=== PATIENT | female | born 1975 | race Caucasian/White ===

== ENCOUNTER → 2017-01-15 | Outpatient (CLI) | payer OTHER ==
[2017-01-15 15:59] VITALS: BP 114/68; PULSE 69; RESP 15; TEMP 97.8; BMI 40.8
--- NOTE | 2017-01-15 16:19 | P.HPBAR ---
Bariatric H&P - History & Physicial H&P Date: 01/15/17 History & Physicial: Visit/CC: band fill Patient initial contact: Initial weight: 136.078 kg Initial weight in pounds: 300.00 Height: 5 ft 8 in Initial BMI: 45.6 Last weight: Current weight: 121.88 kg Current weight in pounds: 268.70 Current BMI: 40.8 [place] body weight (based on NIH guidelines): 63.503 kg Excess body weight loss: 19.5% The patient is a 41 year-old F who presents for Bariatric Assessment. The patient presents for lap band follow. She is moving of the area and was living in [facility]. The patient states that she had an adjustment done had a clinic. She states she has no restriction. I have not seen her in 3 or 4 years. Past Medical History Past Medical History: No Reported History History of Any Multi-Drug Resistant Organisms: None Reported Past Surgical History: Cholecystectomy Additional Past Surgical History / Comment(s): LAP BAND, PANNICULECTOMY Past Anesthesia/Blood Transfusion Reactions: No Reported Reaction, Motion Sickness Additional Past Anesthesia/Blood Transfusion Reaction / Comm: No transfusions to date, patient states she receives scolpalamine patch behind ear during sx. Past Psychological History: No Psychological Hx Reported Smoking Status: Never smoker Past Alcohol Use History: Occasional Past Drug Use History: None Reported - Past Family History Mother Family Medical History: Coronary Artery Disease (CAD) Additional Family Medical History / Comment(s): heart attack at age 60's (smoker ) Father Family Medical History: Hyperlipidemia Surgical - Exam Vital Signs Temp Pulse Resp BP 97.8 F 69 15 114/68 01/15/17 15:53 01/15/17 15:53 01/15/17 15:53 01/15/17 15:53 - General well developed, no distress - Eyes PERRL - ENT normal pinna - Neck no masses - Abdomen Abdomen: soft, non tender Bariatric Assessment & Plan Plan: Patient's lap band was adjusted. She had 2 mL added to her band. There was a slight decrease in the volume after flushing the band. There appeared to be 1.7 mL in the band. It is not clear if this was due to a leak. The patient follow-up in 2 weeks for recheck. If there is evidence of a leak she'll be scheduled for replacement of her LAP-BAND port. Bariatric Checklist Checklist: Plan: Checklist: EGD: 1. Hiatal hernia: 2. H. Pylori: HgbA1c: Vitamin D: Smoking: Never smoker Primary care physician referral: none Psychiatry clearance: Cardiology clearance: Sleep study: Diet journal: VTE risk score: VTE risk level: Rehab needs at discharge:
== END | disposition home or self-care (01) ==
LOC: BARWHC3 13:47
PROVIDERS: ATTEND Surgery
DX: Z09 Encounter for follow-up examination after completed treatment for conditions other than malignant neoplasm (principal); Z98.84 Bariatric surgery status
CPT/HCPCS: 99202

== ENCOUNTER 2017-03-23 08:49 | Day surgery (SDC) | payer OTHER ==
[2017-03-16 14:21] VITALS: BMI 40.7
[~2017-03-23 08:49] MED LIST: DEXAMETHASONE SOD PHOSPHATE 10 MG/ML 1 ML VIAL IV ONE; LACTATED RINGERS 1,000 ML IV SCH; MIDAZOLAM 2 MG/2 ML VIAL IV PRN; ONDANSETRON 4 MG/2 ML VIAL IVP ONE; SCOPOLAMINE 1.5MG/72HR PATCH TRANSDERM ONE; ceFAZolin 3 GM in SODIUM CHLORIDE 0.9% 100 ML IVPB ONE
--- NOTE | 2017-03-23 10:13 | P.GSHP ---
History of Present Illness H&P Date: 03/23/17 Chief Complaint: LAP-BAND port malfunction This a 42-year-old female who's had previous Leslee surgery. Patient presents today for laparoscopic removal and replacement of LAP-BAND port. Her port is not holding fluid. Past Medical History Past Medical History: GERD/Reflux Additional Past Medical History / Comment(s): SEASONAL ALLERGIES History of Any Multi-Drug Resistant Organisms: None Reported Past Surgical History: Bariatric Surgery, Cholecystectomy, Orthopedic Surgery Additional Past Surgical History / Comment(s): LAP BAND, PANNICULECTOMY, LEFT FOOT BONE SPURS REMOVED Past Anesthesia/Blood Transfusion Reactions: Motion Sickness, Postoperative Nausea & Vomiting (PONV) Additional Past Anesthesia/Blood Transfusion Reaction / Comment(s): No transfusions to date, patient states she receives scolpalamine patch behind ear during sx. Smoking Status: Never smoker - Past Family History Mother Family Medical History: CVA/TIA Additional Family Medical History / Comment(s): heart attack at age 60's (smoker ) Father Family Medical History: Hyperlipidemia Medications and Allergies Home Medications Medication Instructions Recorded Confirmed Type Levocetirizine Dihydrochloride 5 mg PO DAILY PRN 03/16/17 03/23/17 History [Xyzal] Omeprazole 40 mg PO BID PRN 03/16/17 03/23/17 History Allergies Allergy/AdvReac Type Severity Reaction Status Date / Time clarithromycin [From Biaxin] AdvReac Rapid Verified 03/23/17 09:27 Heart Rate hydrocodone bitartrate AdvReac Vomiting Verified 03/23/17 09:27 [From Vicodin] Surgical - Exam Vital Signs Temp Pulse Resp BP Pulse Ox 98 F 75 16 104/81 98 03/23/17 09:32 03/23/17 09:32 03/23/17 09:32 03/23/17 09:32 03/23/17 09:32 - General well developed - Eyes PERRL - ENT normal pinna - Neck no masses - Respiratory normal expansion - Cardiovascular Rhythm: regular - Abdomen Abdomen: soft, non tender Assessment and Plan Plan: LAP-BAND port malfunction. We'll perform laparoscopic removal and replacement of LAP-BAND port.
[2017-03-23] MEDS ORDERED: ROCURONIUM BROMIDE 10 MG/ML 10 ML VIAL IV ONE (10:14)
[2017-03-23] MEDS ORDERED: LACTATED RINGERS 1,000 ML IV ONE (10:14)
[2017-03-23] MEDS ORDERED: MIDAZOLAM 2 MG/2 ML VIAL ONE (10:14)
[2017-03-23] MEDS ORDERED: ONDANSETRON 4 MG/2 ML VIAL ONE (10:14)
[2017-03-23] MEDS ORDERED: GLYCOPYRROLATE 0.2 MG/ML 2 ML VIAL ONE (10:14)
[2017-03-23] MEDS ORDERED: LIDOCAINE 1% INJ 10MG/ML (20 ML MDV) ONE (10:14)
[2017-03-23] MEDS ORDERED: PROPOFOL 10 MG/ML 20 ML VIAL IV ONE (10:14)
[2017-03-23] MEDS ORDERED: SUCCINYLCHOLINE CHLORIDE 100 MG/5 ML SYR IV ONE (10:14)
[2017-03-23] MEDS ORDERED: NEOSTIGMINE 1 MG/ML 10 ML VIAL ONE (10:14)
[2017-03-23] MEDS ORDERED: fentaNYL (PF) 50 MCG/ML 2 ML AMP ONE (10:14)
[2017-03-23] MEDS ORDERED: LIDOCAINE 2%-EPI 1:100,000 20 ML VIAL SQ ONE ×2 (10:35)
[2017-03-23] MEDS ORDERED: BUPIVACAINE (PF) 0.25% 30 ML VIAL SQ ONE ×2 (10:35)
[2017-03-23 11:26] VITALS: TEMP 97.8
[2017-03-23] MEDS ORDERED: PROMETHAZINE INJ 25 MG/ML 1 ML VIAL IVPB ONE (11:30)
[2017-03-23] MEDS: HYDROmorphone 1 MG/ML 1 ML SYRINGE IVP PRN ×2 (11:45→12:12)
--- NOTE | 2017-03-23 13:10 | P.OP ---
Date of Procedure: 03/23/17 Preoperative Diagnosis: LAP-BAND port malfunction Postoperative Diagnosis: LAP-BAND port malfunction Procedure(s) Performed: Colonoscopy Implants: Anesthesia: MAC Surgeon: Darinel Luke Estimated Blood Loss (ml): 5 Pathology: none sent Condition: stable Disposition: PACU Indications for Procedure: Operative Findings: Description of Procedure: The patient's placed on the operative table in the supine position. She she received general anesthesia. Her abdomen was prepped and draped usual sterile fashion. The skin was anesthetized over the port site and then using a 11 blade the skin was incised and using left cautery the LAP-BAND port was dissected free from the subcutaneous tissues. The connecting tube appeared to be eroded from the fascia. At this point the tubing was cut and the port was removed. Using a 5 mm optical trocar under direct visitation the perineal cavity is entered and the abdomen was insufflated after adequate insufflation the laparoscope was placed back the pleural cavity. A 10 mm trocar was placed in the right upper quadrant. Under direct vision. And then the Tube was brought up through the similar trocar site. The LAP-BAND port was connected PEG tube and this was secured to the fascia using 0 Nurolon suture. The port was flushed with saline. 2 mL was left in the port. The skin was closed interrupted 3-0 Monocryl suture. Dermabond was applied. Patient top she will was sent to recovery in stable condition.
[2017-03-23] MEDS ORDERED: HYDROcodone/APAP 7.5-325MG 1 EACH TAB PO ONE (13:27)
[2017-03-23 13:36] VITALS: BP 114/74; PULSE 69; RESP 18
== END 2017-03-23 14:11 | disposition home or self-care (01) ==
LOC: OR 08:49
PROVIDERS: ATTEND Surgery
DX: T85.518A Breakdown (mechanical) of other gastrointestinal prosthetic devices, implants and grafts, initial encounter (principal); E66.01 Morbid (severe) obesity due to excess calories; K21.9 Gastro-esophageal reflux disease without esophagitis; Z79.899 Other long term (current) drug therapy; Z88.5 Allergy status to narcotic agent; Z88.1 Allergy status to other antibiotic agents; Z98.84 Bariatric surgery status
CPT/HCPCS: 81025; 43888; C1751; J2250; J1100; J2550; J2710; J0690; J2405; J2001; J3010; J1170; J0330; J2704

== ENCOUNTER → 2017-03-27 | Outpatient (CLI) | payer OTHER ==
--- NOTE | 2017-03-27 14:25 | P.BASOAP ---
Subjective Principal diagnosis: Dysphagia Patient underwent laparoscopic port replacement last week by Dr. Luke. She has had difficulty tolerating liquids and solids since that time. She has had episodes of vomiting. Denies fevers. Mild incisional discomfort. She was only able to tolerate small volumes fill previously. Objective - Exam Abdomen: Soft, nondistended, incisions clean and dry, mild tenderness Assessment/Plan (1) Morbid obesity Narrative/Plan: Patient's port was accessed. A small seroma measuring 3-4 mL was evacuated. The port itself was evacuated of 1.5 mL of saline. The patient was then able to tolerate liquids without difficulty. Plan: Date: Initial Weight: 136.078 kg Initial BMI: Current Weight: Current BMI: Type of Surgery: Total Volume in Band: 2 Previous Volume: Volume Removed: Volume Added: Band Size:
[2017-03-27 14:32] VITALS: BP 122/75; PULSE 88; TEMP 98.2; BMI 40.4
== END | disposition home or self-care (01) ==
LOC: BARWHC3 13:30
PROVIDERS: ATTEND Surgery
DX: E66.01 Morbid (severe) obesity due to excess calories (principal)
CPT/HCPCS: 99212

== ENCOUNTER → 2017-04-16 | Outpatient (CLI) | payer OTHER ==
[2017-04-16 14:17] VITALS: BP 113/72; PULSE 87; RESP 16; TEMP 98.4; BMI 41.5
--- NOTE | 2017-04-16 14:38 | P.HPBAR ---
Bariatric H&P - History & Physicial H&P Date: 04/16/17 History & Physicial: Visit/CC: Patient initial contact: Initial weight: 136.078 kg Initial weight in pounds: 300.00 Height: 5 ft 8 in Initial BMI: 45.6 Last weight: Current weight: 123.944 kg Current weight in pounds: 273.00 Current BMI: 41.5 [place] body weight (based on NIH guidelines): 63.503 kg Excess body weight loss: 16.8% The patient is a 42 year-old F who presents for Bariatric Assessment. Patient presents today for l LAP-BAND adjustment. She currently feels hungry. Past Medical History Past Medical History: GERD/Reflux Additional Past Medical History / Comment(s): SEASONAL ALLERGIES History of Any Multi-Drug Resistant Organisms: None Reported Past Surgical History: Bariatric Surgery, Cholecystectomy, Orthopedic Surgery Additional Past Surgical History / Comment(s): LAP BAND, PANNICULECTOMY, LEFT FOOT BONE SPURS REMOVEDlap band port replacement - Past Anesthesia/Blood Transfusion Reactions: Motion Sickness, Postoperative Nausea & Vomiting (PONV) Additional Past Anesthesia/Blood Transfusion Reaction / Comm: No transfusions to date, patient states she receives scolpalamine patch behind ear during sx. Smoking Status: Never smoker - Past Family History Mother Family Medical History: CVA/TIA Additional Family Medical History / Comment(s): heart attack at age 60's (smoker ) Father Family Medical History: Hyperlipidemia Surgical - Exam Vital Signs Temp Pulse Resp BP 98.4 F 87 16 113/72 04/16/17 14:11 04/16/17 14:11 04/16/17 14:11 04/16/17 14:11 - General well developed, no distress - Eyes PERRL - Abdomen Abdomen: soft, non tender Bariatric Assessment & Plan Plan: Patient LAP-BAND was adjusted. She had 1 mL added to her band. The patient was a refill of Prilosec for her mild GERD symptoms. Bariatric Checklist Checklist: Plan: Checklist: EGD: 1. Hiatal hernia: 2. H. Pylori: HgbA1c: Vitamin D: Smoking: Never smoker Primary care physician referral: none Psychiatry clearance: Cardiology clearance: Sleep study: Diet journal: VTE risk score: VTE risk level: Rehab needs at discharge:
== END ==
LOC: BARWHC3 13:31
PROVIDERS: ATTEND Surgery
DX: Z48.815 Encounter for surgical aftercare following surgery on the digestive system (principal); K21.9 Gastro-esophageal reflux disease without esophagitis; Z79.899 Other long term (current) drug therapy; Z98.84 Bariatric surgery status
CPT/HCPCS: 99212

== ENCOUNTER → 2017-11-02 | Outpatient (CLI) | payer OTHER ==
[2017-11-02 09:30] VITALS: BP 121/69; PULSE 72; TEMP 97.7; BMI 38.7
--- NOTE | 2017-11-02 09:59 | P.HPBAR ---
Bariatric H&P - History & Physicial H&P Date: 11/02/17 History & Physicial: Visit/CC: lap band follow up Patient initial contact: Initial weight: 136.078 kg Initial weight in pounds: 300.00 Height: 5 ft 8 in Initial BMI: 45.6 Last weight: Current weight: 115.621 kg Current weight in pounds: 254.90 Current BMI: 38.7 [place] body weight (based on NIH guidelines): 63.503 kg Excess body weight loss: 28.1% The patient is a 42 year-old F who presents for Bariatric Assessment. Patient is requesting a fill of her LAP-BAND. She also has complaints of intermittent hernia near her umbilicus. Past Medical History Past Medical History: GERD/Reflux Additional Past Medical History / Comment(s): SEASONAL ALLERGIES History of Any Multi-Drug Resistant Organisms: None Reported Past Surgical History: Bariatric Surgery, Cholecystectomy, Orthopedic Surgery Additional Past Surgical History / Comment(s): LAP BAND, PANNICULECTOMY, LEFT FOOT BONE SPURS REMOVEDlap band port replacement -- Past Anesthesia/Blood Transfusion Reactions: Motion Sickness, Postoperative Nausea & Vomiting (PONV) Additional Past Anesthesia/Blood Transfusion Reaction / Comm: No transfusions to date, patient states she receives scolpalamine patch behind ear during sx. Smoking Status: Never smoker - Past Family History Mother Family Medical History: CVA/TIA Additional Family Medical History / Comment(s): heart attack at age 60's (smoker ) Father Family Medical History: Hyperlipidemia Surgical - Exam Vital Signs Temp Pulse BP 97.7 F 72 121/69 11/02/17 09:28 11/02/17 09:28 11/02/17 09:28 - General well developed, no distress - Eyes PERRL - ENT normal pinna - Neck no masses - Respiratory normal expansion - Cardiovascular Rhythm: regular - Abdomen Abdomen: soft, non tender Hernia: incisional (3 cm incisional hernia located near umbilicus) Bariatric Assessment & Plan Plan: Patient LAP-BAND was adjusted. She had 0.7 mL added to her band. She currently is 1.7 mL in the band. She is water without difficulty. Patient has a small incisional hernia located near the umbilicus. Hernias are reducible. Patient is scheduled for outpatient robotic-assisted repair of incisional hernia. Bariatric Checklist Checklist: Plan: Checklist: EGD: 1. Hiatal hernia: 2. H. Pylori: HgbA1c: Vitamin D: Smoking: Never smoker Primary care physician referral: none Psychiatry clearance: Cardiology clearance: Sleep study: Diet journal: VTE risk score: VTE risk level: Rehab needs at discharge:
== END | disposition home or self-care (01) ==
LOC: BARWHC3 09:04
PROVIDERS: ATTEND Surgery
DX: Z48.815 Encounter for surgical aftercare following surgery on the digestive system (principal); Z98.84 Bariatric surgery status; Z98.890 Other specified postprocedural states
CPT/HCPCS: 99212

== ENCOUNTER 2017-11-28 06:15 | Day surgery (SDC) | payer OTHER ==
[2017-11-22 10:20] VITALS: BMI 33.7
[~2017-11-28 06:15] MED LIST changes: +MORPHINE SULFATE 4 MG/ML SYRINGE IV PRN; -ONDANSETRON 4 MG/2 ML VIAL IVP ONE; +ONDANSETRON ODT 4 MG TAB PO ONE; -SCOPOLAMINE 1.5MG/72HR PATCH TRANSDERM ONE; -ceFAZolin 3 GM in SODIUM CHLORIDE 0.9% 100 ML IVPB ONE; +ceFAZolin IN SWFI 2 GM/20 ML SYRINGE IVP ONE
[2017-11-28] MEDS ORDERED: LIDOCAINE 1% 20 ML VIAL (10MG/ML) FOR IV START INTRADERMA ONE (07:23)
[2017-11-28] MEDS ORDERED: MIDAZOLAM 2 MG/2 ML VIAL IVP ONE (07:55)
--- NOTE | 2017-11-28 08:32 | P.GSHP ---
History of Present Illness H&P Date: 11/28/17 Chief Complaint: Incisional hernia This a 42-year-old female who's developed an incisional hernia above her umbilicus. Patient presents today for laparoscopic robotic-assisted repair of incisional hernia. Past Medical History Past Medical History: GERD/Reflux Additional Past Medical History / Comment(s): SEASONAL ALLERGIES. HERNIA History of Any Multi-Drug Resistant Organisms: None Reported Past Surgical History: Bariatric Surgery, Cholecystectomy, Orthopedic Surgery Additional Past Surgical History / Comment(s): LAP BAND, PANNICULECTOMY, LEFT FOOT BONE SPURS REMOVED, lap band port replacement Past Anesthesia/Blood Transfusion Reactions: Motion Sickness, Postoperative Nausea & Vomiting (PONV) Additional Past Anesthesia/Blood Transfusion Reaction / Comment(s): No transfusions to date, patient states she receives scolpalamine patch behind ear during sx. Smoking Status: Never smoker - Past Family History Mother Family Medical History: CVA/TIA Additional Family Medical History / Comment(s): heart attack at age 60's (smoker ) Father Family Medical History: Hyperlipidemia Medications and Allergies Home Medications Medication Instructions Recorded Confirmed Type Levocetirizine Dihydrochloride 5 mg PO DAILY PRN 03/16/17 11/28/17 History [Xyzal] Omeprazole 40 mg PO DAILY #60 capsule. 04/16/17 11/28/17 Rx Allergies Allergy/AdvReac Type Severity Reaction Status Date / Time clarithromycin [From Biaxin] AdvReac Rapid Verified 11/22/17 10:14 Heart Rate hydrocodone bitartrate AdvReac Vomiting Verified 11/28/17 07:14 [From Vicodin] Surgical - Exam Vital Signs Temp Pulse Resp BP Pulse Ox 97.1 F L 60 16 111/67 98 11/28/17 07:21 11/28/17 07:21 11/28/17 07:21 11/28/17 07:21 11/28/17 07:21 - General well developed, no distress - Eyes PERRL - ENT normal pinna - Neck no masses - Respiratory normal expansion - Cardiovascular Rhythm: regular - Abdomen Incisional hernia acute above the umbilicus. The hernia is partially reducible. Assessment and Plan Assessment: Incisional hernia. We'll perform laparoscopic robotic-assisted repair.
[2017-11-28] MEDS ORDERED: fentaNYL (PF) 50 MCG/ML 2 ML AMP ONE (08:38)
[2017-11-28] MEDS ORDERED: MIDAZOLAM 2 MG/2 ML VIAL ONE (08:38)
[2017-11-28] MEDS ORDERED: GLYCOPYRROLATE 0.2 MG/ML 2 ML VIAL ONE (08:38)
[2017-11-28] MEDS ORDERED: SUCCINYLCHOLINE CHLORIDE 100 MG/5 ML SYR IV ONE (08:38)
[2017-11-28] MEDS ORDERED: ROCURONIUM BROMIDE 10 MG/ML 10 ML VIAL IV ONE (08:38)
[2017-11-28] MEDS ORDERED: LIDOCAINE 1% INJ 10MG/ML (20 ML MDV) ONE (08:38)
[2017-11-28] MEDS ORDERED: KETOROLAC 30 MG/ML 1 ML VIAL ONE (08:38)
[2017-11-28] MEDS ORDERED: ROPIVACAINE 5 MG/ML 30 ML VIAL ONE (08:38)
[2017-11-28] MEDS ORDERED: NEOSTIGMINE 1 MG/ML 10 ML VIAL ONE (08:38)
[2017-11-28] MEDS ORDERED: PROPOFOL 10 MG/ML 20 ML VIAL IV ONE (08:38)
[2017-11-28] MEDS ORDERED: BUPIVACAINE (PF) 0.25% 30 ML VIAL SQ ONE (08:54)
[2017-11-28] MEDS ORDERED: LACTATED RINGERS 1,000 ML IV ONE (09:10)
[2017-11-28 09:59] VITALS: TEMP 98.5
[2017-11-28] MEDS ORDERED: ONDANSETRON 4 MG/2 ML VIAL IVP ONE (10:10)
[2017-11-28] MEDS ORDERED: fentaNYL (PF) 50 MCG/ML 2 ML AMP IVP ONE ×2 (10:27→10:39)
--- NOTE | 2017-11-28 11:25 | P.OP ---
Date of Procedure: 11/28/17 Preoperative Diagnosis: Incisional hernia Postoperative Diagnosis: Incisional hernia Incidental left inguinal hernia Procedure(s) Performed: Laparoscopic robotic repair of incisional hernia Partial omentectomy LAP-BAND adjustment Anesthesia: MARGARET Surgeon: Darinel Luke Estimated Blood Loss (ml): 5 Pathology: other (Omentum) Condition: stable Disposition: PACU Description of Procedure: The patient was placed on the operating table in the supine position. The patient received general anesthesia. The abdomen was prepped and draped usual fashion. Using a 5 mm optical trocar under direct visualization the peritoneal cavity was entered in the left upper quadrant. The abdomen was then insufflated. The laparoscope was placed back into the perineal cavity. Next a 8 mm robotic trocar was placed in the left lower quadrant and a 12 mm robotic trocar was placed in the left lateral position. The original 5 mm trocar was exchanged for a 8 mm robotic trocar. The patient's placed in the left side up position. And the patient was docked to the robot. The incisional hernia was visualized. Using hook cautery the peritoneum over the incisional hernia was excised. The incarcerated omentum was excised. The fascial opening was repaired using 0V LOC suture. Next a piece of 11 cm round ventral light ST mesh was placed into the. Cavity and secured with 2 OV lock suture. The patient was undocked the robot. The needles were retrieved. The transected omentum was retrieved. The fascia of the 12 mm trocar site was closed with 0 Ethibond suture. Skin was closed interrupted 3-0 Monocryl suture. Dermabond dressings was applied. The patient was requesting an adjustment of her LAP-BAND. 0.4 mL was removed from her LAP-BAND using a Dominguez needle under sterile technique. Patient tolerated procedure well and was sent to recovery room stable condition.
[2017-11-28] MEDS ORDERED: HYDROcodone/APAP 5-325MG 1 EACH TAB PO ONE (11:30)
[2017-11-28 12:12] VITALS: BP 120/78; PULSE 70; RESP 18
--- NOTE | 2017-11-28 13:11 | P.ONQ ---
Anesthesiology Proc Note - PNB - Peripheral Nerve Block Performed Bilateral Rectus Abdominis Single Time Out Performed: Yes Procedure Start Time: 07:51 Procedure Stop Time: 08:01 Indication: Acute Post-Operative Pain, Requested by physician Sedation Type: Sedate with meaningful contact maintained Preparation: Sterile Prep Position: Supine Needle Size: 50mm (2") Needle Gauge: 21 Technique: Ultrasound Injectate: 0.5% Ropivacaine (see comment for volume) (ropi .5% 15cc each side) Blood Aspirated: No Pain Paresthesia on Injection Noted: No Resistance on Injection: Normal Events: Uneventful and Well Tolerated
== END 2017-11-28 12:22 | disposition home or self-care (01) ==
LOC: OR 06:15
PROVIDERS: ATTEND Surgery
DX: K43.0 Incisional hernia with obstruction, without gangrene (principal); K40.90 Unilateral inguinal hernia, without obstruction or gangrene, not specified as recurrent; K21.9 Gastro-esophageal reflux disease without esophagitis; Z46.51 Encounter for fitting and adjustment of gastric lap band; Z79.899 Other long term (current) drug therapy; Z88.1 Allergy status to other antibiotic agents; Z88.5 Allergy status to narcotic agent
CPT/HCPCS: 49655; 64488; S2083; S2900; 86850; 86900; 86901; 88302

== ENCOUNTER → 2017-12-10 | Outpatient (CLI) | payer OTHER ==
[2017-12-10 14:13] VITALS: BP 105/76; PULSE 84; RESP 16; TEMP 98.2; BMI 36.5
--- NOTE | 2017-12-10 15:15 | P.HPBAR ---
Bariatric H&P - History & Physicial H&P Date: 12/10/17 History & Physicial: Visit/CC: HERNIA REPAIR FOLLOW-UP Patient initial contact: Initial weight: 136.078 kg Initial weight in pounds: 300.00 Height: 5 ft 8 in Initial BMI: 45.6 Last weight: Current weight: 108.862 kg Current weight in pounds: 240.00 Current BMI: 36.5 [place] body weight (based on NIH guidelines): 63.503 kg Excess body weight loss: 37.5% The patient is a 42 year-old F who presents for Bariatric Assessment. The patient is postop from laparoscopic robotic-assisted incisional hernia. She has some complaints of some mild abdominal pain. Past Medical History Past Medical History: GERD/Reflux Additional Past Medical History / Comment(s): SEASONAL ALLERGIES. HERNIA History of Any Multi-Drug Resistant Organisms: None Reported Past Surgical History: Bariatric Surgery, Cholecystectomy, Orthopedic Surgery Additional Past Surgical History / Comment(s): LAP BAND, PANNICULECTOMY, LEFT FOOT BONE SPURS REMOVED, lap band port replacement -- Past Anesthesia/Blood Transfusion Reactions: Motion Sickness, Postoperative Nausea & Vomiting (PONV) Additional Past Anesthesia/Blood Transfusion Reaction / Comm: No transfusions to date, patient states she receives scolpalamine patch behind ear during sx. Past Psychological History: No Psychological Hx Reported Smoking Status: Never smoker Past Alcohol Use History: Occasional Past Drug Use History: None Reported - Past Family History Mother Family Medical History: CVA/TIA Additional Family Medical History / Comment(s): heart attack at age 60's (smoker ) Father Family Medical History: Hyperlipidemia Surgical - Exam Vital Signs Temp Pulse Resp BP 98.2 F 84 16 105/76 12/10/17 14:08 12/10/17 14:08 12/10/17 14:08 12/10/17 14:08 - General well developed, no distress - Eyes PERRL - Abdomen Incision sites are clean dry and intact Abdomen: soft, non tender Bariatric Assessment & Plan Plan: Status post robotic incisional hernia repair. Patient doing quite well. She will follow-up in 4 weeks. Bariatric Checklist Checklist: Plan: Checklist: EGD: 1. Hiatal hernia: 2. H. Pylori: HgbA1c: Vitamin D: Smoking: Never smoker Primary care physician referral: none Psychiatry clearance: Cardiology clearance: Sleep study: Diet journal: VTE risk score: VTE risk level: Rehab needs at discharge:
== END | disposition home or self-care (01) ==
LOC: BARWHC3 13:45
PROVIDERS: ATTEND Surgery
DX: Z09 Encounter for follow-up examination after completed treatment for conditions other than malignant neoplasm (principal); K21.9 Gastro-esophageal reflux disease without esophagitis; R10.9 Unspecified abdominal pain; J30.2 Other seasonal allergic rhinitis; Z98.890 Other specified postprocedural states; Z90.49 Acquired absence of other specified parts of digestive tract; Z98.84 Bariatric surgery status
CPT/HCPCS: 99211

== ENCOUNTER → 2020-03-10 | Outpatient (CLI) | payer OTHER ==
[2020-03-10 09:31] VITALS: BP 128/78; PULSE 84; TEMP 97.8; BMI 36.9
--- NOTE | 2020-03-11 16:41 | P.HPBAR ---
Bariatric H&P - History & Physicial H&P Date: 03/10/20 History & Physicial: Visit/CC: lap band follow up Patient initial contact: Initial weight: 136.078 kg Initial weight in pounds: 300.00 Height: 5 ft 8 in Initial BMI: 45.6 Last weight: Current weight: 110.223 kg Current weight in pounds: 243.00 Current BMI: 36.9 [place] body weight (based on NIH guidelines): 63.503 kg Excess body weight loss: 35.6% The patient is a 45 year-old F who presents for Bariatric Assessment.patient requestong a fill. she is hungry. Past Medical History Past Medical History: GERD/Reflux Additional Past Medical History / Comment(s): SEASONAL ALLERGIES. HERNIA History of Any Multi-Drug Resistant Organisms: None Reported Past Surgical History: Bariatric Surgery, Cholecystectomy, Orthopedic Surgery Additional Past Surgical History / Comment(s): LAP BAND, PANNICULECTOMY, LEFT FOOT BONE SPURS REMOVED, lap band port replacement - Past Anesthesia/Blood Transfusion Reactions: Motion Sickness, Postoperative Nausea & Vomiting (PONV) Additional Past Anesthesia/Blood Transfusion Reaction / Comm: No transfusions to date, patient states she receives scolpalamine patch behind ear during sx. Smoking Status: Never smoker - Past Family History Mother Family Medical History: CVA/TIA Additional Family Medical History / Comment(s): heart attack at age 60's (smoker) Father Family Medical History: Hyperlipidemia Surgical - Exam Vital Signs Temp Pulse BP 97.8 F 84 128/78 03/10/20 09:30 03/10/20 09:30 03/10/20 09:30 - General well developed, well nourished, no distress - Abdomen Abdomen: soft, non tender Bariatric Assessment & Plan Plan: patient had 2cc added to band. currently has 7 cc in band. Bariatric Checklist Checklist: Plan: Checklist: EGD: 1. Hiatal hernia: 2. H. Pylori: HgbA1c: Vitamin D: Smoking: Never smoker Primary care physician referral: none Psychiatry clearance: Cardiology clearance: Sleep study: Diet journal: VTE risk score: VTE risk level: Rehab needs at discharge:
== END | disposition home or self-care (01) ==
LOC: BARWHC3 09:01
PROVIDERS: ATTEND Surgery
DX: Z46.51 Encounter for fitting and adjustment of gastric lap band (principal)
CPT/HCPCS: 99212

== ENCOUNTER → 2020-04-07 | Outpatient (CLI) | payer OTHER ==
[2020-04-07 09:29] VITALS: BP 111/78; PULSE 112; RESP 18; TEMP 98.3; BMI 35.2
--- NOTE | 2020-04-07 09:56 | P.HPBAR ---
Bariatric H&P - History & Physicial H&P Date: 04/07/20 History & Physicial: Visit/CC: band adjustment Patient initial contact: Initial weight: 136.078 kg Initial weight in pounds: 300.00 Height: 5 ft 8 in Initial BMI: 45.6 Last weight: Current weight: 105.233 kg Current weight in pounds: 232.00 Current BMI: 35.2 [place] body weight (based on NIH guidelines): 63.503 kg Excess body weight loss: 42.5% The patient is a 45 year-old F who presents for Bariatric Assessment. Patient presents today for her LAP-BAND adjustment. She requests and some fluid remove her band. She's had some problems with reflux. Past Medical History Past Medical History: GERD/Reflux Additional Past Medical History / Comment(s): SEASONAL ALLERGIES. HERNIA History of Any Multi-Drug Resistant Organisms: None Reported Past Surgical History: Bariatric Surgery, Cholecystectomy, Orthopedic Surgery Additional Past Surgical History / Comment(s): LAP BAND, PANNICULECTOMY, LEFT FOOT BONE SPURS REMOVED, lap band port replacement - Past Anesthesia/Blood Transfusion Reactions: Motion Sickness, Postoperative Nausea & Vomiting (PONV) Additional Past Anesthesia/Blood Transfusion Reaction / Comm: No transfusions to date, patient states she receives scolpalamine patch behind ear during sx. Past Psychological History: No Psychological Hx Reported Smoking Status: Never smoker Past Alcohol Use History: Occasional Past Drug Use History: None Reported - Past Family History Mother Family Medical History: CVA/TIA Additional Family Medical History / Comment(s): heart attack at age 60's (smoker) Father Family Medical History: Hyperlipidemia Surgical - Exam Vital Signs Temp Pulse Resp BP 98.3 F 112 H 18 111/78 04/07/20 09:21 04/07/20 09:21 04/07/20 09:21 04/07/20 09:21 - General well developed, well nourished, no distress - Eyes PERRL - ENT normal pinna - Neck no masses - Respiratory normal expansion - Cardiovascular Rhythm: regular - Abdomen Abdomen: soft, non tender Bariatric Assessment & Plan Plan: Patient's lap band was adjusted. 0.4 mL remove her band. She currently has 1.4 mL in the band. She'll follow-up in 4 weeks. Bariatric Checklist Checklist: Plan: Checklist: EGD: 1. Hiatal hernia: 2. H. Pylori: HgbA1c: Vitamin D: Smoking: Never smoker Primary care physician referral: none Psychiatry clearance: Cardiology clearance: Sleep study: Diet journal: VTE risk score: VTE risk level: Rehab needs at discharge:
== END | disposition home or self-care (01) ==
LOC: BARWHC3 08:57
PROVIDERS: ATTEND Surgery
DX: Z46.51 Encounter for fitting and adjustment of gastric lap band (principal); Z90.49 Acquired absence of other specified parts of digestive tract; Z98.84 Bariatric surgery status
CPT/HCPCS: 99212